=== PATIENT | female | born 1985 ===

== ENCOUNTER 2020-09-25 13:16 | Emergency (ER) | payer BC ==
--- NOTE | 2020-09-25 13:46 | EDM.PDOC ---
ED HPI GENERAL MEDICAL PROBLEM - General Chief Complaint: Bite:Animal, Insect Stated Complaint: CAT BITE TO FINGER Time Seen by Provider: 09/25/20 13:39 - History of Present Illness INITIAL COMMENTS - FREE TEXT/NARRATIVE: 35-year-old female with no active medical problems or current medications no allergies there is presenting after being bitten in the left index finger by a kitten earlier today. It was a stray kitten. She was trying to pick it up and help it did not appear rapid. Patient is wash the area thoroughly she has no pain or other complaints at this time. - Related Data Allergies Allergy/AdvReac Type Severity Reaction Status Date / Time ibuprofen Allergy Cannot Verified 09/25/20 13:48 Remember Home Meds: Home Meds . [No Known Home Meds] 09/25/20 [History] ED ROS GENERAL - Review of Systems Review Of Systems: See Below Free Text/Narrative/Comment: General: No fever. Skin: Per HPI Musculoskeletal: Per HPI ED EXAM, ANIMAL BITE - Physical Exam Exam: See Below Text/Narrative:: General Appearance: No acute distress, appears comfortable Skin: No rash HEENT: Normocephalic/atraumatic, sclera anicteric, mucous membranes moist Neck: Normal range of motion Musculoskeletal: Small.the could represent a puncture is noted on the palmar surface of the left index finger just proximal to the PIP there is no active bleeding there is no swelling there is no contusion there is no change of the skin of the left finger strength and range of motion is intact and painless Neurologic: Awake, alert, no obvious deficits, moving all extremities Psychiatric: Appropriate, cooperative Course - Vital Signs Last Recorded V/S: Last Vital Signs Temp 97.9 F 09/25/20 13:48 Pulse 89 09/25/20 13:48 Resp 17 09/25/20 13:48 BP 132/71 09/25/20 13:48 Pulse Ox 98 09/25/20 13:48 - Orders/Labs/Meds Orders: Active Orders 24 hr Category Date Time Status Fingers Second Digit Lt F1 [CR] Stat Exams 09/25/20 13:43 Taken Departure - Departure Time of Disposition: 14:00 Disposition: Home, Self-Care 01 Condition: Good Clinical Impression: Cat bite - Discharge Information *PRESCRIPTION DRUG MONITORING PROGRAM REVIEWED*: Not Applicable *COPY OF PRESCRIPTION DRUG MONITORING REPORT IN PATIENT CON: Not Applicable Instructions: Animal Bite, Adult Forms: ED Department Discharge Additional Instructions: Please complete the 5-day course of Augmentin. Because all of the pharmacies are closed you were given a prescription through the [facility] machine. This machine only carries bottles of 20 tablets of Augmentin. You only need to take the prescription for 5 days which will be a total of 10 tablets. Please keep a close eye on the finger if you have any worsening pain redness swelling or drainage please see your doctor right away or return to the ER. The following information is given to patients seen in the emergency department who are being discharged to home. This information is to outline your options for follow-up care. We provide all patients seen in our emergency department with a follow-up referral. The need for follow-up, as well as the timing and circumstances, are variable depending upon the specifics of your emergency department visit. If you don't have a primary care physician on staff, we will provide you with a referral. We always advise you to contact your personal physician following an emergency department visit to inform them of the circumstance of the visit and for follow-up with them and/or the need for any referrals to a consulting specialist. The emergency department will also refer you to a specialist when appropriate. This referral assures that you have the opportunity for follow-up care with a specialist. All of these measure are taken in an effort to provide you with optimal care, which includes your follow-up. Under all circumstances we always encourage you to contact your private physician who remains a resource for coordinating your care. When calling for follow-up care, please make the office aware that this follow-up is from your recent emergency room visit. If for any reason you are refused follow-up, please contact the [facility] Emergency Department at and asked to speak to the emergency department charge nurse. Sepsis Event Note (ED) - Focused Exam Vital Signs: Vital Signs Temp Pulse Resp BP Pulse Ox 09/25/20 13:48 97.9 F 89 17 132/71 98 - My Orders Last 24 Hours: My Active Orders 09/25/20 13:43 Fingers Second Digit Lt F1 [CR] Stat - Assessment/Plan Last 24 Hours: My Active Orders 09/25/20 13:43 Fingers Second Digit Lt F1 [CR] Stat Assessment:: 35-year-old female presenting with cat bite to the left finger. X-ray to exclude retained teeth pending and plan to discharge on Augmentin no sign of significant injury or infection at this point. Return precaution discussed and understood. 1400: X-ray negative for retained foreign body based on my preliminary interpretation patient discharged as above.
--- NOTE | 2020-09-25 14:17 | CR ---
INDICATION: Patent by CT. Evaluate for retained foreign body or teeth. TECHNIQUE: Three views left index finger. FINDINGS: Mild soft tissue swelling left index finger. The discrete site of laceration/soft tissue injury from the cat bite is not seen. No opaque foreign body in the left index finger. Remainder negative. Dictated by Jose Miguel Boston MD @ Sep 25 2020 2:15PM Signed by Dr. Jose Miguel Boston @ Sep 25 2020 2:16PM
== END 2020-09-25 14:17 | disposition home or self-care (01) ==
LOC: MW.ED 13:16
DX: S61.251A Open bite of left index finger without damage to nail, initial encounter (principal); Z88.6 Allergy status to analgesic agent; W55.01XA Bitten by cat, initial encounter
CPT/HCPCS: 73140-26-F1; 73140-F1; 99282; 99283